=== PATIENT | female | born 1935 | race Caucasian/White ===

== ENCOUNTER 2017-06-20 15:13 | Outpatient (CLI) | payer OTHER ==
[2015-12-13 19:04] VITALS: BP 133/43
[2017-06-20 15:50] LABS: eGFR (African) > 60; eGFR (Non-African) > 60
--- NOTE | 2017-06-20 18:31 | Diagnostic Imaging Report ---
SILVIA FERMIN ( ORIENT) [facility] [address] [facility] [address] [place] [address]. [phone] Report Submission Date: Jun 20, 2017 5:42:28 PM INSTITUTIONAL ASSET MANAGER Patient Study Name: RSOA PORTER Date: Jun 20, 2017 3:31:31 PM INSTITUTIONAL ASSET MANAGER Modality Type: US Gender: F Description: UNILAT LTD STDY EXT VEINS : 37 Institution: [facility] Physician: SILVIA FERMIN ([place]) Examination: Ultrasound right vein History: RIGHT LEG SWELLING (Hx) Findings: Sonographic evaluation of the right lower extremity venous system from the groin to the popliteal fossa inclusive. Within the popliteal vein are some peripheral areas of mural thickening. Normal compressibility. No other luminal filling defects. Normal waveforms and response to augmentation. Peripheral soft tissue fluid/edema. 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 Follow as warranted. No evidence for other venous mural/ thrombus abnormality. Electronically signed on Jun 20, 2017 5:42:28 PM INSTITUTIONAL ASSET MANAGER by: Donta HERNÁNDEZ
== END 2017-06-20 15:14 ==
LOC: RAD 15:13
PROVIDERS: ATTEND Family Medicine
DX: M79.604 Pain in right leg (principal); M79.89 Other specified soft tissue disorders; E11.9 Type 2 diabetes mellitus without complications
CPT/HCPCS: 36415; 80048; 93971